=== PATIENT | male | born 1990 | race Caucasian/White ===

== ENCOUNTER 2017-09-17 22:43 | Emergency (ER) | payer OTHER | END 2017-09-18 02:24 | disposition home or self-care (01) | LOC: FTE 22:43 | DX: Z76.0 Encounter for issue of repeat prescription (principal); E10.9 Type 1 diabetes mellitus without complications; F17.210 Nicotine dependence, cigarettes, uncomplicated; Z79.4 Long term (current) use of insulin | CPT/HCPCS: 99281; Z7502 ==

== ENCOUNTER 2017-12-31 17:02 | Emergency (ER) | payer OTHER | END 2017-12-31 17:20 | disposition home or self-care (01) | LOC: E/R 17:02 | DX: Z76.0 Encounter for issue of repeat prescription (principal); E10.9 Type 1 diabetes mellitus without complications; Z79.4 Long term (current) use of insulin; Z87.891 Personal history of nicotine dependence | CPT/HCPCS: 99281 ==